=== PATIENT | male | born 1995 | race Two or more races ===

== ENCOUNTER → 2020-05-01 | Outpatient (CLI) | payer OTHER ==
--- NOTE | 2020-05-01 17:26 | REP ---
INDICATION: [facility] INSUFFICIENCY COMPARISON: None. TECHNIQUE: Bilateral lower extremity deep vein duplex ultrasonography for thrombus. Followed by bilateral lower extremity deep vein duplex ultrasound for reflux. FINDINGS: Bilateral lower extremity duplex ultrasound for thrombus: The deep veins demonstrate normal compression, normal Doppler color flow and normal Doppler waveforms with respiration augmentation from the popliteal veins to the common femoral veins bilaterally. Bilateral lower extremity duplex ultrasound for reflux: Right lower extremity: No reflux is identified at the anterior accessory greater saphenous vein, greater saphenous vein/femoral junction, greater saphenous vein at the mid thigh, greater saphenous vein at the knee, proximal SFV, mid SFA the common distal S at the or in the popliteal vein. There is no reflux in the L SV. No reflux is identified in the right lower extremity. Left lower extremity: There is no anterior accessory greater saphenous vein as an anatomic variant. There is no left lower extremity reflux in the greater saphenous vein/femoral junction, GSV at the mid thigh, GSV at the knee, proximal SFV, mid SFV, distal SFV or popliteal vein. There is no reflux in the LS V. IMPRESSION: There is no deep vein thrombus in the right or left lower extremities. There is no superficial vein or deep vein reflux on the right or the left. <Electronically signed by Brannon Castillo > 05/01/20 1539
== END ==
LOC: M RAD 13:18
PROVIDERS: ATTEND Physician Assistant
DX: I87.2 Venous insufficiency (chronic) (peripheral) (principal)

== ENCOUNTER 2021-06-06 03:07 | Emergency (ER) | payer OTHER ==
[~2021-06-06] VITALS: Ht 170.2 cm; Wt 86.4 kg
[2021-06-06 04:35] LABS: BASO # 0.1 10^3/uL (0.0-0.2); BASO % 0.4 % (0.0-1.0); HEMATOCRIT 44.2 % (42.0-52.0); HEMOGLOBIN 15.1 g/dl (13.5-17.5); LYMPH # 2.4 10^3/uL (1.5-5.0); LYMPH % 19.8 % (24.0-44.0); MEAN CORPUSCULAR HEMOGLOBIN 29.9 pg (27.0-33.0); MEAN CORPUSCULAR HGB CONC 34.2 g/dl (32.0-36.5); MEAN CORPUSCULAR VOLUME 87.5 fl (80.0-96.0); MONO # 0.6 10^3/uL (0.0-0.8); NEUTROPHILS % 74.1 % (36.0-66.0); PLATELET COUNT, AUTOMATED 384 10^3/uL (150-450); RED BLOOD COUNT 5.05 10^6/uL (4.30-6.10); WHITE BLOOD COUNT 12.2 10^3/uL (4.0-10.0)
[2021-06-06 05:07] LABS: ALBUMIN 4.4 GM/DL (3.2-5.2); ALT/SGPT 38 U/L (12-78); BILIRUBIN,DIRECT 0.1 MG/DL (0.0-0.2); BILIRUBIN,TOTAL 0.4 MG/DL (0.2-1.0); BLOOD UREA NITROGEN 18 MG/DL (7-18); CALCIUM LEVEL 10.1 MG/DL (8.5-10.1); CARBON DIOXIDE LEVEL 24 MEQ/L (21-32); CHLORIDE LEVEL 107 MEQ/L (98-107); GLOMERULAR FILTRATION RATE > 60.0 (>60); GLUCOSE, FASTING 99 MG/DL (70-100); LIPASE 153 U/L (73-393); POTASSIUM SERUM 4.1 MEQ/L (3.5-5.1); SODIUM LEVEL 139 MEQ/L (136-145); TOTAL PROTEIN 8.1 GM/DL (6.4-8.2)
[2021-06-06] MEDS ORDERED: NS 1,000 ML IV ONE (07:05)
[2021-06-06] MEDS ORDERED: ISOVUE-370 76% 100ML VIAL As Ordered ONE (08:06)
[2021-06-06 09:37] VITALS: BP 138/86
== END 2021-06-06 09:47 | disposition home or self-care (01) ==
LOC: M ED 03:07
DX: K92.1 Melena (principal); R10.9 Unspecified abdominal pain; D75.A Glucose-6-phosphate dehydrogenase (G6PD) deficiency without anemia; Z88.8 Allergy status to other drugs, medicaments and biological substances; F17.210 Nicotine dependence, cigarettes, uncomplicated
CPT/HCPCS: 74177; 80048; 80076; 83690; 85025; 86850; 86900; 86901; 96360; 99284; Q9967